=== PATIENT | female | born 1970 | race American Indian/Alaskan Native ===

== ENCOUNTER 2018-02-19 04:39 | Outpatient (CLI) | payer BC ==
[2018-02-19] MEDS ORDERED: LACTATED RINGERS 1,000 ML IV ONE (04:41)
[2018-02-19] MEDS ORDERED: TYLENOL PO ONE (05:34)
[2018-02-19 06:19] LABS: Bacteria,Urine 2+ /HPF (Negative); Bilirubin,Urine NEG (Negative); Blood,Urine NEG (Negative); Color,Urine Yellow (Yellow); Mucus,Urine FEW /HPF; Protein,Urine <15 mg/dL mg/dL (Negative); Urobilinogen,Urine < 2.0 mg/dL (<2.0)
[2018-02-19 06:33] VITALS: BP 118/61
== END 2018-02-19 07:13 | disposition home or self-care (01) ==
LOC: TRG 04:39
PROVIDERS: ATTEND Obstetrics & Gynecology
DX: O36.8130 Decreased fetal movements, third trimester, not applicable or unspecified (principal); O26.893 Other specified pregnancy related conditions, third trimester; M79.89 Other specified soft tissue disorders; R51 Headache; Z3A.30 30 weeks gestation of pregnancy
CPT/HCPCS: 59025; 81001

== ENCOUNTER 2019-04-08 23:39 | Emergency (ER) | payer BC, OTHER ==
[2019-04-09] MEDS ORDERED: IBUPROFEN 600 MG TAB PO ONE (01:29)
[2019-04-09] MEDS ORDERED: CYCLOBENZAPRINE 10 MG TAB PO ONE (01:29)
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
[2019-04-09 03:38] VITALS: BP 148/90
== END 2019-04-09 03:37 | disposition home or self-care (01) ==
LOC: ED 23:39
DX: M54.2 Cervicalgia (principal); R51 Headache; M54.9 Dorsalgia, unspecified; Z79.899 Other long term (current) drug therapy; V49.49XA Driver injured in collision with other motor vehicles in traffic accident, initial encounter; Y93.89 Activity, other specified; Y92.410 Unspecified street and highway as the place of occurrence of the external cause; Y99.8 Other external cause status
CPT/HCPCS: 72040; 72072; 72100